=== PATIENT | female | born 1935 | race Caucasian/White ===

== ENCOUNTER 2020-09-07 09:39 | Emergency (ER) | payer OTHER ==
[~2020-09-07] VITALS: Ht 165.1 cm; Wt 113.4 kg
[2020-09-07] MEDS ORDERED: EUTHYROX150 MC1 PO (10:37)
[2020-09-08] MEDS ORDERED: POTCHL20ER PO (16:37)
[2020-09-08] MEDS ORDERED: K-Dur20 MEQ PO (21:58)
== END 2020-09-07 10:37 | disposition home or self-care (01) ==
LOC: ER 09:39
DX: S70.11XA Contusion of right thigh, initial encounter (principal); E11.9 Type 2 diabetes mellitus without complications; I10 Essential (primary) hypertension; Z79.899 Other long term (current) drug therapy; W18.11XA Fall from or off toilet without subsequent striking against object, initial encounter
CPT/HCPCS: 99283

== ENCOUNTER 2020-09-08 13:56 | Emergency (ER) | payer OTHER ==
[~2020-09-08] VITALS: Ht 165.1 cm; Wt 90.7 kg
[~2020-09-08 13:56] MED LIST: EUTHYROX150 MC1 PO
[2020-09-08 14:43] LABS: BASOPHILS ABSOLUTE AUTO 0.03 K/mm3 (0.00-0.23); BASOPHILS PERCENT AUTO 1 % (0-2); EOSINOPHILS ABSOLUTE AUTO 0.04 K/mm3 (0.00-0.68); EOSINOPHILS PERCENT AUTO 1 % (0-6); Hematocrit 36.7 % (33.0-51.0); Hemoglobin 12.7 g/dL (11.5-16.0); IMMATURE GRAN ABSOLUTE AUTO 0.03 K/mm3 (0.00-0.10); IMMATURE GRAN PERCENT AUTO 1 % (0-1); LYMPHOCYTES ABSOLUTE AUTO 2.36 K/mm3 (0.84-5.20); LYMPHOCYTES PERCENT AUTO 42 % (21-46); MONOCYTES ABSOLUTE AUTO 0.55 K/mm3 (0.16-1.47); MONOCYTES PERCENT AUTO 10 % (4-13); Mean Corpuscular HGB 33.2 pg (26.0-34.0); Mean Corpuscular HGB Conc 34.6 g/dL (31.5-36.5); Mean Corpuscular Volume 96 fL (80-100); Mean Platelet Volume 9.4 fL (9.1-12.4); NEUTROPHILS PERCENT AUTO 46 % (41-73); Platelet Count 140 K/mm3 (150-400); RDW Coefficient Variation 13.1 % (11.7-14.2); RDW Standard Deviation 45.4 fL (35.1-46.3); Red Blood Cell Count 3.83 M/mm3 (3.80-5.20); White Blood Cell Count 5.61 K/mm3 (4.00-11.30)
[2020-09-08 15:02] LABS: Bun/Creatinine Ratio 9.2 (12.0-20.0); Calcium, Blood 9.6 mg/dL (8.5-10.1); Creatinine, Blood 1.53 mg/dL (0.40-1.00); Potassium, Blood 2.3 mmol/L (3.5-5.5)
[2020-09-08 16:02] LABS: Source, Urine Clean Catch
[2020-09-08 16:11] LABS: Appearance, Urine Clear (Clear); Bilirubin, Urine Neg (Neg); Blood, Urine 2+ (Neg); Color, Urine Yellow (P-Yellow); Glucose Qualitative, Urine 2+ (Neg); Ketones, Urine 2+ (Neg); Leukocyte Esterase, Urine Neg (Neg); Nitrite, Urine Neg (Neg); Protein, Urine 3+ (Neg); Specific Gravity, Urine 1.015 (1.003-1.022); Urobilinogen, Urine NORM (Normal)
[2020-09-08 16:31] LABS: Bacteria Not Seen /hpf; Hyaline Casts Rare /lpf (0-2); Red Blood Cells, Urine 0-2 /hpf (0-2); Squamous Epithelial Cells Mod /hpf (Few); White Blood Cells, Urine 0-2 /hpf (0-5)
[2020-09-08] MEDS ORDERED: POTCHL20ER PO (16:37)
[2020-09-08 18:45] LABS: Chloride (POC) 93 mmol/L (98-108); Creatinine (POC) 1.6 mg/dL (0.6-1.0); Glucose (ISTAT POC) 163 mg/dL (70-99); Hemoglobin (POC) 12.2 g/dL (12.0-16.0); Potassium (POC) 2.8 mmol/L (3.5-5.5); Sodium (POC) 135 mmol/L (135-148); Total CO2 (POC) 30 mmol/L (21-32)
[2020-09-08] MEDS ORDERED: K-Dur20 MEQ PO (21:58)
== END 2020-09-08 22:00 | disposition home or self-care (01) ==
LOC: ER 13:56
PROVIDERS: Student in an Organized Health Care Education/Training Program
DX: M25.551 Pain in right hip (principal); E87.6 Hypokalemia; G89.29 Other chronic pain; I10 Essential (primary) hypertension; E11.9 Type 2 diabetes mellitus without complications; Z79.899 Other long term (current) drug therapy; Z79.84 Long term (current) use of oral hypoglycemic drugs; X58.XXXA Exposure to other specified factors, initial encounter
CPT/HCPCS: 36415; 51701; 73502; 80047; 80048; 81001; 83735; 85014; 85025; 93005; 93010; 96361-59; 96365-59; 96366-59; 96367-59; 96375-59; 99285-25; A9270; J1885; J3475; J3480; J7120

== ENCOUNTER 2020-09-12 13:27 | Inpatient (IN) | payer OTHER ==
[~2020-09-12] VITALS: Ht 165.1 cm; Wt 91.6 kg
[~2020-09-12 13:27] MED LIST changes: +K-Dur20 MEQ PO; +POTCHL20ER PO
[2020-09-12 15:58] LABS: Base Excess Venous 5.1 mmol/L; Bicarbonate Venous 28.1 mmol/L (24.0-30.0); PCO2 Venous 43.5 mmHg (38-42); PO2 Venous 46.6 mmHg (38-42); pH Blood Venous 7.44 (7.34-7.37)
[2020-09-12 16:21] LABS: BASOPHILS ABSOLUTE AUTO 0.02 K/mm3 (0.00-0.23); BASOPHILS PERCENT AUTO 0 % (0-2); EOSINOPHILS ABSOLUTE AUTO 0.04 K/mm3 (0.00-0.68); EOSINOPHILS PERCENT AUTO 1 % (0-6); Hematocrit 34.8 % (33.0-51.0); Hemoglobin 12.4 g/dL (11.5-16.0); IMMATURE GRAN ABSOLUTE AUTO 0.04 K/mm3 (0.00-0.10); IMMATURE GRAN PERCENT AUTO 1 % (0-1); LYMPHOCYTES ABSOLUTE AUTO 2.26 K/mm3 (0.84-5.20); LYMPHOCYTES PERCENT AUTO 43 % (21-46); MONOCYTES ABSOLUTE AUTO 0.56 K/mm3 (0.16-1.47); MONOCYTES PERCENT AUTO 11 % (4-13); Mean Corpuscular HGB 33.4 pg (26.0-34.0); Mean Corpuscular HGB Conc 35.6 g/dL (31.5-36.5); Mean Corpuscular Volume 94 fL (80-100); Mean Platelet Volume 9.8 fL (9.1-12.4); NEUTROPHILS PERCENT AUTO 44 % (41-73); Platelet Count 124 K/mm3 (150-400); RDW Coefficient Variation 12.9 % (11.7-14.2); RDW Standard Deviation 44.6 fL (35.1-46.3); Red Blood Cell Count 3.71 M/mm3 (3.80-5.20); White Blood Cell Count 5.22 K/mm3 (4.00-11.30)
[2020-09-12 16:53] LABS: Albumin, Blood 3.4 g/dL (3.4-5.0); Albumin/Globulin Ratio 1.1 (0.8-1.8); Bilirubin, Total 0.8 mg/dL (0.1-1.0); Bun/Creatinine Ratio 11.8 (12.0-20.0); Calcium, Blood 8.8 mg/dL (8.5-10.1); Creatinine, Blood 1.44 mg/dL (0.40-1.00); Globulin, Blood 3.2 g/dL (2.2-4.0); Potassium, Blood 2.3 mmol/L (3.5-5.5); Total Protein, Blood 6.6 g/dL (6.4-8.2)
[2020-09-12 17:29] LABS: Source, Urine Catheter
[2020-09-12 17:36] LABS: Appearance, Urine Clear (Clear); Bilirubin, Urine Neg (Neg); Blood, Urine Neg (Neg); Color, Urine Yellow (P-Yellow); Glucose Qualitative, Urine 2+ (Neg); Ketones, Urine 2+ (Neg); Leukocyte Esterase, Urine Neg (Neg); Nitrite, Urine Neg (Neg); Protein, Urine 2+ (Neg); Urobilinogen, Urine NORM (Normal)
[2020-09-12] MEDS ORDERED: ATOR40TA PO (17:48)
[2020-09-12] MEDS ORDERED: AMLO10 PO (17:48)
[2020-09-12] MEDS ORDERED: VITAMIN D5000 UNIT PO (17:48)
[2020-09-12] MEDS ORDERED: LISI10 PO (17:48)
[2020-09-12] MEDS ORDERED: METF500 PO (17:48)
[2020-09-12 17:57] LABS: Bacteria Rare /hpf; Red Blood Cells, Urine 0-2 /hpf (0-2); Squamous Epithelial Cells Mod /hpf (Few); White Blood Cells, Urine 0-2 /hpf (0-5)
[2020-09-12 17:58] LABS: Hyaline Casts Rare /lpf (0-2)
[2020-09-12 22:28] LABS: Bun/Creatinine Ratio 12.3 (12.0-20.0); Calcium, Blood 8.2 mg/dL (8.5-10.1); Creatinine, Blood 1.3 mg/dL (0.40-1.00); Potassium, Blood 3.7 mmol/L (3.5-5.5)
--- NOTE | 2020-09-13 00:58 | NUR ---
pt a/o x2 with forgetfulness. 2157 pt is hypertensive, denies pain. hospitalist called with po hydralazine x1 ordered. 2313 pt currently asleep. bp re-assessed, still high. hospitalist zafar updated. labetalol 10mg ix x1 ordered. sr in the 70's per telegraphic typewriter repairer. 0038 bp decreased. this time pt is complaining of "not feeling good all over". pain medication given per emar. wcc. 0100 SR at 65 per telegraphic typewriter repairer.
[2020-09-13 05:22] LABS: Hematocrit 32.8 % (33.0-51.0); Mean Corpuscular HGB 33.7 pg (26.0-34.0); Mean Corpuscular HGB Conc 36.6 g/dL (31.5-36.5); Mean Corpuscular Volume 92 fL (80-100); Mean Platelet Volume 9.8 fL (9.1-12.4); Platelet Count 121 K/mm3 (150-400); RDW Standard Deviation 43.8 fL (35.1-46.3); Red Blood Cell Count 3.56 M/mm3 (3.80-5.20); White Blood Cell Count 5.63 K/mm3 (4.00-11.30)
[2020-09-13 05:46] LABS: Albumin, Blood 3.1 g/dL (3.4-5.0); Bilirubin, Total 1.2 mg/dL (0.1-1.0); Bun/Creatinine Ratio 13.7 (12.0-20.0); Calcium, Blood 8.4 mg/dL (8.5-10.1); Creatinine, Blood 1.24 mg/dL (0.40-1.00); Globulin, Blood 3.1 g/dL (2.2-4.0); Potassium, Blood 3.1 mmol/L (3.5-5.5); Total Protein, Blood 6.2 g/dL (6.4-8.2)
--- NOTE | 2020-09-13 07:16 | NUR ---
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 PT MEDICATED FOR PAIN TWICE OVERNIGHT, PT STATES SHE HAS NO PAIN EACH TIME AFTER MEDICATED. PT PAINFUL WITH MOVEMENT AND REPOSITIONING. PT HAS BEEN HYPERTENSIVE ALL NIGHT. MEDICATED FOR HTN OVERNIGHT. BLADDER SCANNED AROUND 0200 WITH ONLY 350 ML IN BLADDER. PT HAD SIPS OF WATER HERE AND THERE. PT HAS BRUISES ALL OVER BODY. PER DR'S NOTES, PT HAD A FALL AT HOME. PT DOES NOT REMEMBER DETAILS OF FALL. PT SAYS SHE FEELS SAFE AT HOME. SR IN THE 60'S TO 80'S PER TELE. BED ALARM ON, CALL LIGHT WITHIN REACH. REPORT GIVEN TO ONCOMING RN.
[2020-09-13 17:15] LABS: Bun/Creatinine Ratio 15.5 (12.0-20.0); Calcium, Blood 9.4 mg/dL (8.5-10.1); Creatinine, Blood 1.29 mg/dL (0.40-1.00); Potassium, Blood 3.9 mmol/L (3.5-5.5)
--- NOTE | 2020-09-13 19:09 | NUR ---
SHIFT SUMMARY KYLAH WAS VERY CONFUSED THIS SHIFT. REORIENTED KYLAH SEVERAL TIMES, SHE IS ANXIOUS. POOR PO APPETITE, STATES SHE IS NAUSEOUS, IV ZOFRAN GIVEN. PT VERY PAINFUL TO MOVE LOWER EXTREMITIES OR TO CHANGE POSITION OF THE HEAD OF BED. PO NORCO GIVEN, HEAT PACK IN PLACE. PT PULLED L HAND PIV, R AC PIV C/D/I AND WRAPPED WELL. BP HIGH THIS MORNING AT 195 SYSTOLIC, DECREASED WITH PRN HYDRALAZINE AND SCHEDULED MORNING BP MEDS. PT UNABLE TO PASS URINE. UNABLE TO GET UP TO BSC WITH AO2 DUE TO PAIN AND WEAKNESS. UNABLE TO PASS URINE ON BED COWAN DUE TO AMS. STRAIGHT CATH ORDER OBTAINED FROM DR REINA FOR BLADDER SCAN OVER 500. STRAIGHT CATH'D AT 1230 PM. BLADDER SCAN AT 1730 SHOWED 207ML. TOOK MEDS PRESCRIBED ONE AT A TIME WITH WATER. CALL LIGHT IN REACH, REPORT GIVEN TO NIGHT NURSE
--- NOTE | 2020-09-13 20:55 | NUR ---
BP 169/92 AND IV APRESOLINE 10 MG GIVEN PER EMAR FOR SPB >160. RECHECK BP 135/69. WATCHING TV. CALL LIGHT IN REACH.
--- NOTE | 2020-09-13 23:15 | NUR ---
PATIENT PULLED TELEMETRY OFF X FOUR. ALERT TO SELF. DOES NOT FOLLOW DIRECTIONS. MEDICATED FOR BACK PAIN WITH NORCO X TWO TABS PER EMAR. PATIENT PULLED GOWN OFF AND BLANKETS OFF BED. BED ALARM ACTIVATED.
--- NOTE | 2020-09-13 23:59 | NUR ---
INCREASED CONFUSION PULLING AT IV AND TELEMETRY. NOT ABLE TO FOLLOW DIRECTIONS. HOSPITALIST BETTY CAMP ORDERED BILATERAL SOFT WRIST RESTRAINTS.
--- NOTE | 2020-09-14 02:49 | NUR ---
BLADDER SCAN 338mL AND ORDER TO STRAIGHT CATH IF OVER 500mL. WILL CONTINUE TO MONITOR.
--- NOTE | 2020-09-14 04:10 | NUR ---
SHIFT SUMMARY PATIENT HAD INCREASED AGITATION PULLING TELEMETRY OFF SIX TIMES AND PULLING AT IV. COMBATIVE AT TIMES AND PULLED GOWN AND COVER OFF MULTIPLE TIMES. HOSPITALIST BETTY PARENT EDUCATOR ORDERED BILATERAL SOFT WRIST RESTRAINTS. AXO TO SELF AND NOT ABLE TO FOLLOW DIRECTIONS AT THIS TIME. CONFUSED AND REPORTS SHE IS ON A RANCH WITH COWS, HORSES, AND DOGS WHEN ASKED WHERE SHE IS AT. HYPERTENSIVE (SEE NOTE) AND IV APRESOLINE 10 MG GIVEN FOR SBP>160 PER ORDERS X TWO. PIV REMAINS INTACT. SECURITY SUPPORT ANALYST REPORTS NSR 75. REPORTED BACK PAIN AND NORCO X TWO TABS GIVEN PER EMAR. HEATING PAD USED FIRST PART OF SHIFT FOR BACK PAIN. TAKES MEDICATION X ONE EACH. BLADDER SCAN 338 mL APPROX 03:00 AND ORDERS TO STRAIGHT CATH OVER 500 mL. LIMITED FLUID INTACT. BED IN LOWEST POSITION AND ALARM ACITVATED. WILL CONTINUE TO MONITOR UNTIL DAY SHIFT NURSE ASSUMES CARE.
[2020-09-14 05:33] LABS: Hematocrit 35.4 % (33.0-51.0); Hemoglobin 12.5 g/dL (11.5-16.0); Mean Corpuscular HGB 33.4 pg (26.0-34.0); Mean Corpuscular HGB Conc 35.3 g/dL (31.5-36.5); Mean Corpuscular Volume 95 fL (80-100); Mean Platelet Volume 10.1 fL (9.1-12.4); Platelet Count 151 K/mm3 (150-400); RDW Coefficient Variation 13.4 % (11.7-14.2); RDW Standard Deviation 46.5 fL (35.1-46.3); Red Blood Cell Count 3.74 M/mm3 (3.80-5.20); White Blood Cell Count 7.54 K/mm3 (4.00-11.30)
[2020-09-14 06:15] LABS: Bun/Creatinine Ratio 14.6 (12.0-20.0); Calcium, Blood 9.4 mg/dL (8.5-10.1); Creatinine, Blood 1.37 mg/dL (0.40-1.00); Free Thyroxine 0.47 ng/dL (0.70-1.60); Triiodothyronine, Free 0.53 pg/mL (2.18-3.98)
[2020-09-14] MEDS ORDERED: METO100ER PO (10:52)
[2020-09-14] MEDS ORDERED: Aspir 8181 MG PO (10:53)
--- NOTE | 2020-09-14 19:18 | NUR ---
SHIFT SUMMARY KYLAH GOT NORCO FOR PAIN THIS MORNING WHICH WORKED WELL. UP WITH PT TO SIT AT EDGE OF BED. TOOK PILLS 1 AT A TIME WITH APPLESAUCE. REQUIRED FEED ASSISTANCE WITH MEALS TO ENCOURAGE PO INTAKE. UNABLE TO URINATE ON BED COWAN OR TO GET UP TO BSC, STRAIGHT CATH'D THIS MORNING AROUND 1015 (AFTER BLADDER SCAN OF 628) AND GOT 500ML OUT. CALL LIGHT IN REACH, REPORT GIVEN TO NIGHT NURSE
--- NOTE | 2020-09-15 05:25 | NUR ---
SHIFT SUMMARY: VSS. AFEB. AAOX1. KNOWS SHE IS IN THE HOSPITAL BUT NOT WHAT TOWN SHE IS IN. ABLE TO COMMUNICATE NEEDS. FLUIDS ENCOURAGED BUT PT ONLY ACCEPTING SIPS OF ENSURE. NO VOID SO FAR TONIGHT, BLADDER SCAN X1. MOST RECENT SCAN 402 MLS. PT STATES SHE HAS NO URGE TO VOID. WILL ATTEMPT TO PLACE PT ON BED COWAN TO ENCOURAGE VOID. TRACE TO +1 SWELLING OF BILATERAL HANDS AND FEET. LS DIM, NO COUGHING. SLEEPING INTERMITTENTLY. MED X 1 FOR BACK PAIN W/ GOOD RESULTS. WCTM.
[2020-09-15 05:33] LABS: Bun/Creatinine Ratio 19.5 (12.0-20.0); Calcium, Blood 9.5 mg/dL (8.5-10.1); Creatinine, Blood 1.49 mg/dL (0.40-1.00); Potassium, Blood 4.8 mmol/L (3.5-5.5)
--- NOTE | 2020-09-15 13:00 | NUR ---
DAUGHTER UPDATE- DAUGHTER NOTIFIED OF TRANSFER TO ROOM 364 FOR CEILING LIFT. PER DAUGHTER PT HAS HAD ISSUES WITH HER LEFT LEG FOR QUITE SOMETIME, SHE BELIEVES ITS ARTHRITIS IN THE KNEE. DAUGHTER REPORTS SHE CAN NO LONGER TRANSFER HER BUT HER DAUGHTRS BOYFRIEND TRANSFERS HER TO A W/C OR BSC. DAUGHTER ALSO REPORTS PT HAS HAD A POOR INTAKE AT HOME AND USUALLY EATS SOUPS AND OATMEAL. PT CONT TO REFUSE TO EAT BUT WILL DRINK ENSURES.
--- NOTE | 2020-09-15 17:31 | NUR ---
SHIFT SUMMARY- PT A/O X1-2, PT NOTED TO HAVE INCREASED CONFUSION THIS EVENING, HX OF DEMENTIA. PT MEDICATED X2 FOR CHRONIC LOWER BACK PAIN. PT NOTED TO YELL OUT WHENEVER TOUCHED. LS CLEAR, ON RA. PT WAS REPORTED TO BE A 2 PERSON ASSIST, UPON GETTING PT UP TO CHAIR THIS AM PT NOTED TO NOT USE LEFT LEG, PT IS NOW A LIFT FOR TRANSFERS SHE DID NOT ASSIST WITH THE TRANSFER. DISCUSSED WITH PT DAUGHTER WHO REPORTS PT HAS HAD PROBLEMS WITH HER LEFT LEG FOR QUITE SOME TIME SHE BELIEVES DUE TO ARTHRITIS IN THE KNEE. PT WITH BRUISING T/O, LARGE BRUISE TO INNER RIGHT THIGH. STRAIGHT CATH X1 TODAY, PT CONT TO NOT BE ABLE TO VOID. PT CONT TO REFUSE FOOD EVEN WITH ENCOURAGEMENT AND ATTEMPTING TO FEED PT, PT DID DRINK 3 GLUCERNAS THOUGH T/O THE DAY. MOM AND COLACE GIVEN FOR NO BM WITH NO RESULTS YET. DAUGHTER UPDATED VIA PHONE. NO OTHER ACUTE CHANGES THIS SHIFT.
[2020-09-16 06:01] LABS: Bun/Creatinine Ratio 22.4 (12.0-20.0); Calcium, Blood 9.9 mg/dL (8.5-10.1); Creatinine, Blood 1.47 mg/dL (0.40-1.00)
--- NOTE | 2020-09-16 06:40 | NUR ---
SHIFT SUMMARY: KYLAH IS ALERT AND INTERACTIVE WITH STAFF. VSS, NO ACUTE EVENTS OVERNIGHT. SHE WAS AWAKE AND CALLING OUT FOR THE FIRST SEVERAL HOURS OF THE SHIFT, DIFFICULT TO CONSOLE. SHE DID REST WITH HER EYES CLOSED AFTER ADMINISTRATION OF THE SEROQUEL. SHE CONSISTENTLY DISROBES AND PLACES THE GOWN AND LINENS ON THE FLOOR. SHE HAS NOT ATTEMPTED TO GET OUT OF BED THIS SHIFT. IV TO LEFT ARM PATENT. ATTENDS IN PLACE. NO URINE OUTPUT THIS SHIFT, STRAIGHT CATH PRODUCED 600 ML. PO INTAKE ENCOURAGED THIS SHIFT, MINIMAL INTAKE. SHE IS LYING IN BED WITH HER CALL LIGHT IN REACH. WILL REPORT TO DAY SHIFT RN.
[2020-09-16 14:58] LABS: Source, Urine Catheter
[2020-09-16 15:06] LABS: Appearance, Urine Clear (Clear); Bilirubin, Urine Neg (Neg); Blood, Urine 1+ (Neg); Color, Urine Yellow (P-Yellow); Glucose Qualitative, Urine Neg (Neg); Ketones, Urine Neg (Neg); Leukocyte Esterase, Urine 1+ (Neg); Nitrite, Urine Neg (Neg); Protein, Urine 1+ (Neg); Urobilinogen, Urine NORM (Normal)
[2020-09-16 15:25] LABS: Bacteria Not Seen /hpf; Red Blood Cells, Urine 0-2 /hpf (0-2); Squamous Epithelial Cells Rare /hpf (Few)
--- NOTE | 2020-09-16 16:48 | NUR ---
SHIFT SUMMARY PATIENT DENIES PAIN THIS SHIFT. PATIENT ABLE TO MOVE MUCH MORE EASILY IN BED TODAY. VERY LITTLE CALLING OUT AND MUCH LESS FEARFUL TODAY. ORIENTED TO SELF ONLY. ZAZUETA PLACED FOR RETENTION. POOR PO INTAKE BUT INCREASED FROM YESTERDAY. NAPPING OFF AND ON DURING SHIFT.
--- NOTE | 2020-09-17 05:02 | NUR ---
SHIFT SUMMARY PT SLEPT MUCH OF THE NIGHT. WOKE EASILY TO STAFF. PLEASANTLY CONFUSED. NO COMPLAINTS OF PAIN OR DISCOMFORT AND NO NON VERBAL S/S OF PAIN. PT'S DAUGHTER CALLED AND WAS GIVEN AN UPDATE THIS EVENING. DAUGHTER STATED THAT IF PT WAS GOING TO HAVE TO GO TO A SNF THAT DAUGHTER WOULD PREFER [facility] IF AT ALL POSSIBLE. PT RESTING COMFORTABLY AT THIS TIME. WILL CONTINUE TO MONITOR.
[2020-09-17 10:55] LABS: Influenza A, PCR NEGATIVE (NEGATIVE); Influenza B, PCR NEGATIVE (NEGATIVE); Resp Syncytial Virus, PCR NEGATIVE (NEGATIVE); SARS-Cov-2 (COVID-19) PCR, MMC NEGATIVE (NEGATIVE)
[2020-09-17] MEDS ORDERED: DOCU100 PO (11:56)
[2020-09-17] MEDS ORDERED: Acetaminophen325 M1 PO (11:56)
[2020-09-17] MEDS ORDERED: QUET25 PO (11:57)
[2020-09-17] MEDS ORDERED: TAMS.4ER PO (11:57)
--- NOTE | 2020-09-17 14:54 | NUR ---
DISCHARGE PATIENT DISCHARGED TO [facility] FOR REHAB. PATIENT TRANSPORTED VIA WHEELCHAIR TRANSPORT. DISCHARGE PACKET WITH COLLISION TECHNICIAN. IV REMOVED WITHOUT DIFFICULTY. DAUGHTER AT BEDSIDE FOR DISCHARGE. REPORT CALLED TO NURSE HAYES AT [facility].
== END 2020-09-17 14:32 | DRG 644 ==
LOC: ER 13:27 → ERHOLD 18:22 → MEDS 18:22 → ENPENDDIS 09-17 10:46 → MEDS 09-17 14:32
PROVIDERS: Emergency Medicine; Family Medicine; ADMIT Hospitalist
DX: E03.8 Other specified hypothyroidism (principal); E87.1 Hypo-osmolality and hyponatremia; F03.91 Unspecified dementia, unspecified severity, with behavioral disturbance; F05 Delirium due to known physiological condition; N17.9 Acute kidney failure, unspecified; Z20.822 Contact with and (suspected) exposure to COVID-19; E87.6 Hypokalemia; Z66 Do not resuscitate; E86.0 Dehydration; I10 Essential (primary) hypertension; E11.9 Type 2 diabetes mellitus without complications; G35 Multiple sclerosis; M54.5 Low back pain; M25.552 Pain in left hip
CPT/HCPCS: 0241U; 36415; 70450; 71045; 72100; 72192; 80048; 80053; 81001; 82533; 82803; 82947; 83036; 83735; 84439; 84443; 84481; 85025; 85027; 87086; 93005; 93010; 96374-59; 97110; 97162; 97166; 97530; 99285-25; A9270; J0360; J1650; J2405; J3480; J7050; J7512; P9612